=== PATIENT | male | born 1945 | race Caucasian/White ===

== ENCOUNTER 2020-07-14 11:42 | Emergency (ER) | payer OTHER ==
[~2020-07-14] VITALS: Wt 67.1 kg
[~2020-07-14 11:42] MED LIST: ALBUTEROL0.09 MG/A2 INH; DEPRESSION MED; TAMIFLU75 MG PO; ZITHROMAX Z PA250 MG PO; ZOFRAN ODT4 MG SL
[2020-07-14 12:07] LABS: BASO % 0.5 % (0.0-1.0); EOS # 0.3 10*3/uL (0.0-0.4); EOS % 4.2 % (1.0-4.0); HEMATOCRIT 44.1 % (42.0-52.0); LYMPH # 1.9 10*3/uL (1.3-4.4); LYMPH % 31.4 % (27.0-41.0); MEAN CELL VOLUME 89.8 fl (80.0-94.0); MEAN CORPUSCULAR HGB 29.7 pg (27.0-31.0); MEAN CORPUSCULAR HGB CONC 33.1 g/dl (33.0-37.0); MEAN PLATELET VOLUME 8.8 fl (9.6-12.3); MONO # 0.7 10*3/uL (0.1-1.0); MONO % 11.4 % (3.0-9.0); NEUT # 3.1 10*3/uL (2.3-7.9); NEUT % 52.2 % (47.0-73.0); PLATELET COUNT AUTOMATED 256 10*3/uL (130-400); RED BLOOD COUNT 4.91 10*6/uL (4.50-5.90); RED CELL DISTRI WIDTH 12.8 % (0-14.5)
[2020-07-14 12:17] LABS: ACT PARTIAL THROMBO TIME 27.3 SECONDS (20.0-32.1); INTERNATIONAL NORM RATIO 0.9 (2.0-3.5)
[2020-07-14 12:29] LABS: ALBUMIN 3.9 gm/dl (3.1-4.5); ALKALINE PHOSPHATASE 88 U/L (45-117); BUN 17 mg/dl (7-24); CHLORIDE 108 mmol/L (98-107); CREATININE 1.07 mg/dL (0.70-1.30); POTASSIUM 4.2 mmol/L (3.5-5.1); SGOT/AST 25 IU/L (3-35); SGPT/ALT 26 U/L (12-78); SODIUM 140 mmol/L (136-145); TOTAL PROTEIN 7.3 gm/dL (6.4-8.2)
[2020-07-14 12:30] LABS: TROPONIN I < 0.015 ng/ml (<0.045)
[2020-07-14 15:06] VITALS: BP 128/70
[2020-07-14] MEDS ORDERED: PROVENTIL HFA6.7 GM INH (15:28)
== END 2020-07-14 15:38 | disposition home or self-care (01) ==
LOC: ED 11:42
PROVIDERS: Emergency Medicine
DX: R07.89 Other chest pain (principal); R06.02 Shortness of breath; F32.9 Major depressive disorder, single episode, unspecified; Z88.8 Allergy status to other drugs, medicaments and biological substances; Z79.899 Other long term (current) drug therapy

== ENCOUNTER → 2021-03-13 | Outpatient (CLI) | payer OTHER ==
[~2021-03-13] MED LIST changes: +PROVENTIL HFA6.7 GM INH
== END | disposition home or self-care (01) ==
LOC: COVID19 16:04
PROVIDERS: ATTEND Internal Medicine
DX: U07.1 COVID-19 (principal)

== ENCOUNTER 2022-07-08 10:58 | Emergency (ER) | payer MEDICARE ==
[~2022-07-08] VITALS: Ht 175.2 cm; Wt 65.8 kg
[2022-07-08 11:17] VITALS: BP 139/72
== END 2022-07-08 12:19 | disposition home or self-care (01) ==
LOC: ED 10:58
DX: S20.212A Contusion of left front wall of thorax, initial encounter (principal); Z88.8 Allergy status to other drugs, medicaments and biological substances; W17.89XA Other fall from one level to another, initial encounter; Y93.89 Activity, other specified; Y92.89 Other specified places as the place of occurrence of the external cause; Y99.8 Other external cause status

== ENCOUNTER 2024-09-01 13:42 | Emergency (ER) | payer OTHER ==
[~2024-09-01] VITALS: Ht 175.2 cm; Wt 63.4 kg
[2024-09-01] MEDS ORDERED: Meclizine Hydrochloride 25 MG TAB PO ONE ×2 (14:00→18:50)
[2024-09-01] MEDS ORDERED: SODIUM CHLORIDE 0.9% 500 ML IV ONE (14:00)
[2024-09-01] MEDS ORDERED: diazePAM 10 MG/2 ML SYR IV ONE (14:00)
[2024-09-01 14:16] LABS: BASO % 0.3 % (0.0-1.0); EOS # 0.1 10*3/uL (0.0-0.4); EOS % 1.4 % (1.0-4.0); MEAN CELL VOLUME 90.6 fl (80.0-94.0); MEAN CORPUSCULAR HGB 29.7 pg (27.0-31.0); MEAN CORPUSCULAR HGB CONC 32.8 g/dl (33.0-37.0); MEAN PLATELET VOLUME 8.9 fl (9.6-12.3); MONO # 0.6 10*3/uL (0.1-1.0); MONO % 6.7 % (3.0-9.0); NEUT # 6.6 10*3/uL (2.3-7.9); NEUT % 76.4 % (47.0-73.0); PLATELET COUNT AUTOMATED 267 10*3/uL (130-400); RED BLOOD COUNT 5.08 10*6/uL (4.50-5.90); RED CELL DISTRI WIDTH 13.4 % (0-14.5); WHITE BLOOD COUNT 8.6 10*3/uL (4.8-10.8)
[2024-09-01 14:39] LABS: BUN 18 mg/dl (9-23); CHLORIDE 105 mmol/L (98-107); POTASSIUM 4.5 mmol/L (3.4-5.1)
[2024-09-01] MEDS ORDERED: [UNRECOGNIZED DRUG - REMARK] (16:14)
[2024-09-01 16:22] LABS: BILIRUBIN Negative (Negative); BLOOD Negative (Negative); CLARITY Clear (Clear); COLOR Yellow (Yellow); GLUCOSE Negative (Negative); KETONE Trace (Negative); LEUKO ESTERASE Negative (Negative); NITRITE Negative (Negative); PH 6.5 (4.5-8.0)
[2024-09-01 16:28] LABS: MUCOUS 2+; RBC 0-2 rbc/hpf (0-2); WBC 0-2 wbc/hpf (0-5)
[2024-09-01] MEDS ORDERED: IOHEXOL 350 MG/ML 100 ML VIAL IV ONE (17:20)
[2024-09-01] MEDS ORDERED: SODIUM CHLORIDE 0.9% 100 ML BAG IV ONE (17:20)
[2024-09-01 17:50] VITALS: BP 170/82
[2024-09-01] MEDS ORDERED: ANTIVERT25 M2 PO (19:09)
[2024-09-01] MEDS ORDERED: DEBROX15 ML OT (19:09)
== END 2024-09-01 19:21 | disposition home or self-care (01) ==
LOC: ED 13:42
PROVIDERS: Internal Medicine
DX: H81.10 Benign paroxysmal vertigo, unspecified ear (principal); H61.20 Impacted cerumen, unspecified ear; R91.8 Other nonspecific abnormal finding of lung field; F32.A Depression, unspecified; Z79.899 Other long term (current) drug therapy; Z88.8 Allergy status to other drugs, medicaments and biological substances